=== PATIENT | female | born 2005 | race Caucasian/White ===

== ENCOUNTER 2025-11-06 12:50 | Outpatient (AMB) | payer OTHER, SELFPAY ==
--- NOTE | 2025-11-06 12:52 | A.OFFPC_ITS ---
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 Midlevel Provider Required: No Accompanied by: Self / Same As Patient Allergies No Known Allergies Allergy (Verified 11/06/25 12:58) Medication List - Last Reconciled 11/06/25 by Tayler Toney MD lamotrigine 100 mg PO DAILY lamotrigine 50 mg PO DAILY Tobacco use date assessed: 11/06/25 Dental Screening Dental Screen Date: 11/06/25 Did you have a dental visit in the last 12 months?: Yes Did you have a dental problem in the last 6 months where you did not have access to dental care?: No Was dental information given to patient?: Patient has dentist HPI HPI Comments History of Present Illness Details The patient is a 20 year old female with PMH of Bipolar Type 2 [facility] and for a general physical examination. She has a diagnosis of bipolar II disorder, for which she is prescribed lamotrigine 150 mg daily for mood stability. She is followed by a psychiatrist, Magda Ventura, for her condition. The patient denies any other past medical history or previous surgeries. Her family history is negative for heart disease and cancer, and both of her parents are alive. She denies any surgery. [facility] Social History Housing: Apartment Patient Tobacco Use Status: Never used Tobacco e-Cigarette/Vaping Use: Never Used Second Hand Smoke Exposure: No service: No Current occupational status: employed Current occupational exposures/hazards: No Cognitive needs: No Hearing needs: No Vision needs: Yes Questionnaire PHQ-9 Over the last 2 weeks, how often have you been bothered by any of the following problems? 1. Little interest or pleasure in doing things: not at all 2. Feeling down, depressed, or hopeless: several days 3. Trouble falling or staying asleep, or sleeping too much: several days 4. Feeling tired or having little energy: several days 5. Poor appetite or overeating: not at all 6. Feeling bad about yourself - or that you are a failure or have let yourself or your family down: not at all 7. Trouble concentrating on things, such as reading the newspaper or watching television: not at all 8. Moving or speaking so slowly that other people could have noticed. Or the opposite - being so fidgety or restless that you have been moving around a lot more than usual: not at all 9. Thoughts that you would be better off or of hurting yourself in some way: not at all Total score: 3 Depression Screening Interpretation: Negative Depression Screening Done: Yes Source: Developed by Drs. Jose A George, Birdie Garcia, Thiago Hilliard and colleagues, with an educational rolando from [employer]. Thrive Questionnaire Date Thrive assessed: 11/06/25 I am a: Patient What is your living situation today?: I have a steady place to live Within the past 12 months, did the food you bought not last and you didn't have the money to get more?: Never true Within the past 12 months, did you worry whether your food would run out before you got money to buy more?: Never true Do you have trouble paying for medicines?: No Do you have trouble getting transportation to medical appointments?: No Do you have trouble paying your heating and electricity bill?: No Do you have trouble taking care of your child, family member or friend?: No Do you have trouble with day-to-day activities such as bathing, preparing meals, shopping, managing finances, etc.?: No Are you currently unemployed and looking for a job?: No Are you interested in more education?: No Please select the resources that you would like help with: None Currently or been in a relationship where the following occur: No concerns reported THRIVE Score: 0 AUDIT C Alcohol Use Questionnaire (AUDIT-C) 1. How often do you have a drink containing alcohol?: Monthly or less 2. How many drinks containing alcohol do you have on a typical day when you are drinking?: 1 or 2 3. How often do you have six or more drinks on one occasion?: Never Total Score: 1 HARMEET-7 AMB Questionnaire HARMEET-7 Date HARMEET - 7 assessed: 11/06/25 Feeling nervous, anxious, or on edge: 1 = Several days Not being able to stop or control worryin = Not at all Worrying too much about different things: 1 = Several days Trouble relaxin = Several days Being so restless that it is hard to sit still: 0 = Not at all Becoming easily annoyed or irritable: 1 = Several days Feeling afraid as if something awful might happen: 0 = Not at all Total HARMEET-7 score (0-4 normal; 5-9 mild; 10-14 moderate; 15-21 severe): 4 Source: Developed by Drs. Jose A George, Birdie Garcia, Thiago Hilliard and colleagues, with an educational rolando from [employer]. Review of Systems Const Details: Positives besides what was mentioned in HPI are in BOLD Constitutional: No Weight Change, No Fever, No Chills, No Night Sweats, No Fatigue, No Malaise ENT/Mouth: No Hearing Changes, No Ear Pain, No Nasal Congestion, No Sinus Pain, No Hoarseness, No sore throat, No Rhinorrhea, No Swallowing Difficulty Eyes: No Eye Pain, No Swelling, No Redness, No Foreign Body, No Discharge, No Vision Changes Cardiovascular: No Chest Pain, No SOB, No PND, No Dyspnea on Exertion, No Orthopnea, No Claudication, No Edema, No Palpitations Respiratory: No Cough, No Sputum, No Wheezing, No Smoke Exposure, No Dyspnea Gastrointestinal: No Nausea, No Vomiting, No Diarrhea, No Constipation, No Pain, No Heartburn, No Anorexia, No Dysphagia, No Hematochezia, No Melena, No Flatulence, No Jaundice Genitourinary: No Dysmenorrhea, No DUB, No Dyspareunia, No Dysuria, No Urinary Frequency, No Hematuria, No Urinary Incontinence, No Urgency, No Flank Pain, No Urinary Flow Changes, No Hesitancy Musculoskeletal: No Arthralgias, No Myalgias, No Joint Swelling, No Joint Stiffness, No Back Pain, No Neck Pain, No Injury History Skin: No Skin Lesions, No Pruritis, No Hair Changes, No Breast/Skin Changes, No Nipple Discharge Neuro: No Weakness, No Numbness, No Paresthesias, No Loss of Consciousness, No Syncope, No Dizziness, No Headache, No Coordination Changes, No Recent Falls Psych: No Anxiety/Panic, No Depression, No Insomnia, No Personality Changes, No Delusions, No Rumination, No SI/HI/AH/VH, No Social Issues, No Memory Changes, No Violence/Abuse Hx., No Eating Concerns Heme/Lymph: No Bruising, No Bleeding, No Transfusions History, No Lymphadenopathy Endocrine: No Polyuria, No Polydipsia, No Temperature Intolerance Physical exam (Primary Care) Vital Signs: Last Vital Signs Pulse 91 11/06/25 12:55 BP 130/80 11/06/25 12:55 Pulse Ox 99 11/06/25 12:55 Oxygen Delivery Method Room Air 11/06/25 12:55 BMI result Body Mass Index 26.2 Tobacco/Smoking Status: Tobacco use Status Tobacco use date assessed 11/06/25 11/06/25 12:55 Patient Tobacco Use Status Never used Tobacco 11/06/25 12:55 e-Cigarette/Vaping Use Never Used 11/06/25 12:55 PHQ-9: PHQ-9 Score PHQ-9: Total score 3 11/06/25 13:05 Depression Screening Interpretation: Negative Thrive Assessment: Date of Thrive Assessment Date Thrive assessed 11/06/25 11/06/25 12:55 Currently or been in a relationship where the following occur: No concerns reported Const Other: Pertinent findings are in BOLD GENERAL APPEARANCE NAD, activity normal for age, well developed/ well nourished, no cyanosis, pallor, or diaphoresis. EYES lids/conjunctiva normal. EARS/NOSE/THROAT Mucous membranes moist, nares normal, lips/teeth normal uvula midline without oral pharyngeal erythema, exudate or swelling TMs normal bilaterally. No lymphangitis/lymphedema. Bilateral ear wax. HEAD/NECK normocephalic atraumatic, no facial trauma, neck is supple. RESPIRATORY respiratory effort normal, speaks in full sentences, no tripod position, no accessory muscle use. Lungs clear to auscultation without rhonchi, wheezes, rales CARDIAC Regular rate and rhythm, no edema. ABDOMINAL Soft, ND/NT. No evidence of fluid wave. No pulsatile masses on exam, rebound tenderness, Gupta sign or pain over Mcburney's point. MUSCLES/EXTREMITIES No abnormal range of motion, no swelling. SKIN Warm, pink and dry. No rashes, dermatoses, petechiae or lesions. NEUROLOGICAL Speech is clear and appropriate. Normal level of consciousness. Gait and coordination are normal. 5/5 strength in all extremities. PSYCH Normal mood and affect. Judgement/competence is appropriate Office Procedures Flu Questionnaire Does the patient have a severe egg allergy?: No Does the patient have severe life threatening allergies?: No Does the patient have a fever or illness today?: No Has the patient ever had Guillain-[place] Syndrome?: No Has the patient ever had any past reaction to a flu shot?: No Immunizations Fluarix [id number] (PF) 45 mcg (15 mcg x 3)/0.5 mL IM syringe Performing Provider: Tayler Toney MD Performing Location: [facility] [place] [facility] Administered by: Josefa Gomez RN on 11/06/25 13:39 Dose Route Admin Location Dispensed Lot Number Expiration Date NDC Mac Developer 0.5 mL IM Left Deltoid 0.5 mL [id number] 05/27/26 16974-556-44 Project 10K VIS Given Date VIS Provided VIS Publication Date 11/06/25 Single Vaccine 24 Eligibility Eligibility Date Funding Source Not VFC Eligible 11/06/25 Private Tenivac (PF) 5 Lf unit-2 Lf unit/0.5 mL intramuscular syringe Performing Provider: Tayler Toney MD Performing Location: [facility] [place] [facility] Administered by: Josefa Gomez RN on 11/06/25 13:43 Dose Route Admin Location Dispensed Lot Number Expiration Date NDC Mac Developer 0.5 mL IM Left Deltoid 0.5 mL [id number] 02/25/27 22881-859-79 SANOF [employer]-PASTEUR Total Dispensed Waste 0.5 mL 0 % VIS Given Date VIS Provided VIS Publication Date 11/06/25 Single Vaccine 21 Eligibility Eligibility Date Funding Source Not VFC Eligible 11/06/25 Private Coding Level of Care Code New Pt Prev Care 18-39yr([id number] Diagnoses Bipolar 2 disorder F31.81 Healthcare maintenance Z00.00 Bilateral impacted cerumen H61.23 Laterality: bilateral Time Spent (min) 20 Assessment & Plan Assessment & Plan (1) Bipolar 2 disorder: Code(s): F31.81 - Bipolar II disorder Category: Medical Plan: - The patient is stable on lamotrigine 150 mg daily for mood stabilization. - She will continue to follow up with her psychiatrist. (2) Healthcare maintenance: Code(s): Z00.00 - Encounter for general adult medical examination without abnormal findings Category: Medical Plan: CBC, CMP, Lipid panel, A1C, TSH w T4. Ordered. Shingles 2 doses when >50 yo. At 50. COVID: two doses. Completed. Tdap: LAst done in 2014. Due today. Ordered. Pneumococcal: >50 yo. 18-49 with CKD, lung disease, weakened immune system, Heart disease, DM, cochlear implant. At 50. Flu vaccine: Today. Colonoscopy: 45-75. At 45. AAA: 65 -75. NI[address] CT lun - 80. NI. HPV: geophysical observer. HIV: Ordered. HCV: Ordered. Dexa: At 65. Mammogram: Not due. (3) Excess ear wax: Code(s): H61.20 - Impacted cerumen, unspecified ear Category: Medical Qualifiers: Laterality: bilateral Qualified Code(s): H61.23 - Impacted cerumen, bilateral Plan: - Physical exam revealed cerumen in both ears. - A prescription for carbamide peroxide (Debrox) otic solution was sent to her pharmacy. - The patient was instructed to apply five drops in each ear daily for four days. Plan I introduced myself as the patient's new primary care physician and explained that our conversation was being recorded to assist with note-taking. I recommended she establish care with an ANIMAL DAMAGE CONTROL AGENT, and she agreed to a referral. During the exam, I noted cerumen in both of her ears and offered eardrops to help soften the wax, which she accepted. I will prescribe carbamide peroxide drops, instructing her to use five drops in each ear for four days. I informed her that lab orders would be placed for her to complete at the main hospital, preferably while fasting. Flu and tetanus shots administered today. Given that the visit was for a routine check-up and all findings were normal, I recommended a follow-up visit in one year. Orders: Orders Hemoglobin A1c Today Z00.00 - Encounter for general adult medical examination without abnormal findings Hepatitis C Antibody Reflex Today Z00.00 - Encounter for general adult medical examination without abnormal findings HIV Ab/Ag Today Z00.00 - Encounter for general adult medical examination without abnormal findings TSH reflex Free T4 Today Z00.00 - Encounter for general adult medical examination without abnormal findings Complete Blood Count no Diff Today Z00.00 - Encounter for general adult medical examination without abnormal findings Comprehensive Met. Panel Today Z00.00 - Encounter for general adult medical examination without abnormal findings Lipid Panel Today Z00.00 - Encounter for general adult medical examination without abnormal findings Influenza [id number] Immunization Today Z23 - Encounter for immunization Td Immunization Today Z23 - Encounter for immunization Referrals ANIMAL DAMAGE CONTROL AGENT Referral Z00.00 - Encounter for general adult medical examination without abnormal findings Medications: New carbamide peroxide 6.5% (Debrox) 5 drps otic (ear) right DAILY 15 mL 0RF 4 days
[2025-11-06 12:55] VITALS: BP 130/80; PULSE 91; O2SAT 99; BMI 26.2
--- NOTE | 2025-11-06 13:42 | AM.OFFVISNUR ---
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 Allergies No Known Allergies Allergy (Verified 11/06/25 12:58) Medication List - Last Reconciled 11/06/25 by Tayler Toney MD lamotrigine 100 mg PO DAILY lamotrigine 50 mg PO DAILY Office Procedures Flu Questionnaire Does the patient have a severe egg allergy?: No Does the patient have severe life threatening allergies?: No Does the patient have a fever or illness today?: No Has the patient ever had Guillain-[place] Syndrome?: No Has the patient ever had any past reaction to a flu shot?: No Immunizations Fluarix [id number] (PF) 45 mcg (15 mcg x 3)/0.5 mL IM syringe Performing Provider: Tayler Toney MD Performing Location[place] [facility] Administered by: Josefa Gomez RN on 11/06/25 13:39 Dose Route Admin Location Dispensed Lot Number Expiration Date ND Point Of Care Technician 0.5 mL IM Left Deltoid 0.5 mL [id number] 05/27/26 05177-638-20 [employer] VIS Given Date VIS Provided VIS Publication Date 11/06/25 Single Vaccine 24 Eligibility Eligibility Date Funding Source Not VFC Eligible 11/06/25 Private Tenivac (PF) 5 Lf unit-2 Lf unit/0.5 mL intramuscular syringe Performing Provider: Tayler Toney MD Performing [place] [facility] [place] [facility] Administered by: Josefa Gomez RN on 11/06/25 13:43 Dose Route Admin Location Dispensed Lot Number Expiration Date [facility] Point Of Care Technician 0.5 mL IM Left Deltoid 0.5 mL [id number] 02/25/27 32601-967-59 SANOFI-PASTEUR Total Dispensed Waste 0.5 mL 0 % VIS Given Date VIS Provided VIS Publication Date 11/06/25 Single Vaccine 21 Eligibility Eligibility Date Funding Source Not VFC Eligible 11/06/25 Private Assessment & Plan Assessment & Plan (1) Bipolar 2 disorder: Code(s): F31.81 - Bipolar II disorder Category: Medical (2) Healthcare maintenance: Code(s): Z00.00 - Encounter for general adult medical examination without abnormal findings Category: Medical Orders: Orders Hemoglobin A1c Today Z00.00 - Encounter for general adult medical examination without abnormal findings Hepatitis C Antibody Reflex Today Z00.00 - Encounter for general adult medical examination without abnormal findings HIV Ab/Ag Today Z00.00 - Encounter for general adult medical examination without abnormal findings TSH reflex Free T4 Today Z00.00 - Encounter for general adult medical examination without abnormal findings Complete Blood Count no Diff Today Z00.00 - Encounter for general adult medical examination without abnormal findings Comprehensive Met. Panel Today Z00.00 - Encounter for general adult medical examination without abnormal findings Lipid Panel Today Z00.00 - Encounter for general adult medical examination without abnormal findings Influenza [id number] Immunization Today Z23 - Encounter for immunization Td Immunization Today Z23 - Encounter for immunization Referrals FUEL CELL DESIGNER Referral Z00.00 - Encounter for general adult medical examination without abnormal findings Medications: New carbamide peroxide 6.5% (Debrox) 5 drps otic (ear) right DAILY 15 mL 0RF 4 days Coding Diagnoses Bipolar 2 disorder F31.81 Healthcare maintenance Z00.00
--- OUTSIDE RECORDS SUMMARY | 2025-11-06 19:43 | XMS_ITS | Clinical Summary ---
Author Organization [facility]erged With [facility] Address [address] [place] [address] Phone Care Team Providers Care Mail Deliverer Name Role Phone Pcp, Unknown Primary Care Provider Unavailabl e Allergies No known active allergies Medications No known medications Encounters Date Type Department Care Team Description 10/16/2025 9:11 PM EST - 10/16/2025 11:27 PM EST Emergency [facility] [address] [place] [address] Itz Gaspar, DO Discharge Disposition: Home or Self Care from Last 3 Months Social History Tobacco Use Types Packs/Day Years Used Date Smoking Tobacco: Never Assessed Education Answer Date Recorded Are you interested in more education? Not on yong e 10/17/2025 Are you concerned about learning? Not on file 10/17/2025 No 10/17/2025 No 10/17/2025 Food Answer Date Recorded Within the past 6 months we worried whether our food would run out before we got money to buy more. Never True 10/16/2025 Within the past 6 months the food we bought just didn't last and we didn't have enough money to get more. Never True Residential Stability Answer Date Recor ded What is your housing situation today? I have arlin sing 10/16/2025 How many times have you move d in the past 12 months? Zero (I did not move) 10/16/2025 Paying for Meds Answer Date Recorded Do you have trouble paying for medicines? No 10/16/2025 Paying Utility Bills Answer Date Record ed Do you have trouble paying your heating or elect ricity bill? No 10/16/2025 Transportation Answer Date Recorded Has the lack of transportati on kept you from medical appointments or from getting medications? No 10/16/2025 Digital Access Answer Date Recorded No 10/16/2025 Yes 10/16/2025 Do you have reliable internet access at home? Ye s 10/16/2025 Do you have a device (e.g., phone, tablet, computer) with a working camera? Yes 10/16/2025 Intimate Partner Violence Answer Date R ecorded Are you denied basic needs s uch as food, clothing, or medical care? No 10/16/2025 In the past 12 months have y ou been in a relationship with a person who hurts, threatens, or tries to control you? No 10/16/2025 Are you denied basic needs s uch as food, clothing, or medical care? No 10/16/2025 In the past 12 months have y ou been in a relationship with a person who hurts, threatens, or tries to control you? No 10/16/2025 Comments Unknown Sex and Gender Information Value Date Recorded Sex Assigned at Not on file Legal Sex Female 8:01 PM EST Gender Identity Not on file Sexual Orientation Not on file Last Filed Vital Signs Vital Sign Reading Time Taken Comments Blood Pressure 122/79 10/16/2025 11:25 PM EST Pulse 73 10/16/2025 11:25 PM EST Temperature 36.8 C (98.2 F) 10/16/2025 11:25 PM EST Respiratory Rate 16 10/16/2025 11:25 PM EST Oxygen Saturation 97% 10/16/2025 11:25 PM EST Inhaled Oxygen Concentration - - Weight - - Height - - Body Mass Index - - Plan of Treatment Health Maintenance Due Date Last Done Comments COMBINED DTaP,Tdap,Td (2 - T d or Tdap) 10/14/2015 09/16/2015 DEPRESSION SCREENING 2016 SMOKING Hx and SMOKELESS TOBACCO SCREENING 2017 HPV VACCINES (1 - 3-dose series) 2019 CHLAMYDIA SCREENING 2020 MENINGOCOCCAL VACCINES (B) ( 1 of 2 - Standard) 2020 ADOLESCENT UNIVERSAL LIPID SCREENING 2021 HEPATITIS C SCREENING 2022 HIV ONE-TIME SCREENING (18-6 5 YEARS) 2022 PAP SMEAR 2025 INFLUENZA VACCINE (#1) 2025 COVID-19 VACCINE (2024-2 6 season) 2025 Adult Td,Tdap Booster 09/16/2025 09/16/2015 MMR VACCINES Completed 06/05/2009, 06/22/2005 HEPATITIS A VACCINES Aged Out No long er eligible based on patient's age to complete this topic HIB VACCINES Aged Out No longer eligi ble based on patient's age to complete this topic MENINGOCOCCAL VACCINES (ACWY) Aged Out No longer eligible based on patient's age to complete this topic PNEUMOCOCCAL VACCINES (0-49 years) Aged Out No longer eligible b ased on patient's age to complete this topic Medical Devices Not on file Procedures Procedure Name Priority Date/Time Associated Diagnosis Comments FOREIGN BODY REMOVAL Routine 10/16/2025 11:13 PM EST from Last 3 Months Results * FOREIGN BODY REMOVAL (10/16/2025 11:13 PM EST) Narrative Itz Gaspar DO - 10/16/2025 11:13 PM EST Itz Gaspar DO 10/16/2025 11:14 PM Foreign Body Removal Date/Time: 10/16/2025 11:13 PM Performed by: Itz Gaspar DO Authorized by: Itz Gaspar DO Location: Body area: Mucosa General location: Head/neck Location details: Mouth Procedure Details: Localization method: Visualized Removal mechanism: Forceps and scalpel Depth: Subcutaneous Complexity: Simple Objects recovered (#): 1 Objects recovered: Ring Back Post-procedure assessment: Foreign body removed Patient tolerance: Patient tolerated the procedure well with no immediate complications Itz Gaspar DO PROCEDURE/MINOR SURGICAL ORDE RABLES Final Result from Last 3 Months Insurance [facility] Care Teams Mail Deliverer Relationship Specialty Start Date End Date Pcp, Unknown PCP - General 10/16/25 Additional Source Comments The information contained in this document represents components of the legal health record. It is not the complete legal health record.[facility] With [facility]
--- OUTSIDE RECORDS SUMMARY | 2025-11-06 19:44 | XMS_ITS | Encounter Summary ---
Author Organization [facility] Address [address] [place] [phone] Phone Care Team Providers Care Honey Extractor Name Role Phone Liliana Montelongo MD Primary Care Provider Encounter Details Date Type Department Care Team (Late st Contact Info) Description 07/06/2011 Conversion Encounter [facility] [place] [address] [place] [address] [place] [id number] Social History Tobacco Use Types Packs/Day Years Used Date Smoking Tobacco: Never Assessed Comments Unknown Sex and Gender Information Value Date Recorded Sex Assigned at Not on file Legal Sex Female 6:24 PM EDT Gender Identity Female 04/01/2021 9:08 AM EDT Sexual Orientation Bisexual 05/23/2020 8: 25 AM EDT documented as of this encounter Plan of Treatment Not on file documented as of this encounter Visit Diagnoses Not on filedocumented in this encounter Care Teams Honey Extractor Relationship Specialty Start Date End Date Liliana Montelongo MD [address] [facility] [place] [id number] PCP - General 04/05/18 documented as of this encounter
--- OUTSIDE RECORDS SUMMARY | 2025-11-06 19:44 | XMS_ITS | Clinical Summary ---
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 Looking for implantable device. Referred to APRN and info to be provided to patient today for BOGG for patient to call for routine care. Bipolar affective disorder, currently depressed, mild 06/11/2022 Overview (08/24/2023): Followed by Psych- Lamictal prescribed by them Current dose: 125mg daily. Assessment & Plan (08/24/2023 12:05 PM EDT): Doing well on Lamictal 125 mg as prescribed by psych. No SI or self-harm at this time. Assessment & Plan (06/13/2022 7:46 PM EDT): Followed by Psych- they prescribe Lamictal. Not established with any therapist and listing given today to seek out care. Also advised to f/u with Psych to see if they have options for her ongoing therapy. Eating disorder, unspecified 05/26/2021 Overview (06/13/2022): She restricts calories to 500-600 calories per day but then binges at times. No weight loss. Referred to [facility] 2020 2021 update: Per patient, Mom did want her to go to eating d/o clinic after last years referral and so never pursued. Per patient, she Feels like shes in a better place with eating, no longer counting calories. Assessment & Plan (08/24/2023 12:33 PM EDT): Has lost 22 lbs since last visit 05/2022. Patient states she is not trying to lose weight or counting calories but has been moving around and lifting things at work (works 35-40 hours per week at [employer]). Endorsing orthostatic symptoms (dizziness with changing position). Orthostatic vitals obtained: Vitals: 08/24/23 1127 08/24/23 1207 08/24/23 1213 BP: (!) 120/82 126/74 114/78 BP Location: Right arm Right arm Right arm Patient Position: Sitting Lying Standing Pulse: 68 78 93 Temp: 98.6 F (37 C) TempSrc: Tympanic SpO2: 99% Weight: 169 lb 6.4 oz (76.8 kg) Height: 5' 6.89 (169.9 cm) Orthostatic vitals negative. Plan - Offered re-referral to eating disorder clinic which patient declines at this time. - Encouraged 3 meals and 2 snacks daily, bringing extra snacks to eat at work, adequate hydration - Return in 1 month for weight check - Consider additional workup at that time if persistent or rapid rate or weight loss Assessment & Plan (06/11/2022 3:54 PM EDT): Mom did want her to go to eating d/o clinic after last years referral and so never pursued. Feels like in a better place with eating, no longer counting calories. Assessment & Plan (05/26/2021 9:05 AM EDT): She restricts calories to 500-600 calories per day but then binges at times. No weight loss. Referred to [facility] Disorder Clinic. Current moderate episode of major depressive disorder without prior episode 04/03/2021 Overview (06/07/2021): Consult done 04/03/2021. Concerns for depression but other concerning signs present such as not feeling like she is real and some suicidal ideation. Referred for virtual warm hand-off later that day and referred to [facility] for complete evaluation. Update from [facility] 05/2021: Likely Bipolar Disorder Spectrum Suggesting Lamictal for 4-6 month bridge therapy then f/u with psychiatry. Assessment & Plan (06/13/2022 7:49 PM EDT): Improved PHQ9. From last year. Followed by [facility]. Mild anxiety noted as well. Advised to obtain therapist. Assessment & Plan (05/26/2021 9:04 AM EDT): Consult done 04/03/2021. Concerns for depression but other concerning signs present such as not feeling like she is real and some suicidal ideation. Referred for virtual warm hand-off later that day and referred to [facility] program for complete evaluation. Today, PHQ9 remains elevated at 21 and she has passive suicidal thoughts. She has appt for today at 2:00 pm. On 05/14 our office contacted [facility] program and was told they would be reaching out to patient to schedule her for 06/04/2021. Patient knows nothing about this so I will ask the front end developer designer to call again. Assessment & Plan (04/06/2021 10:10 AM EDT): Concerns for depression but other concerning signs present such as not feeling like she is real and some suicidal ideation. Referred for virtual warm hand-off later that day and referred to [facility] program for complete evaluation. Adjustment disorder with mix ed disturbance of emotions and conduct 04/03/2021 Myopia of both eyes with astigmatism 12/27/2019 Overview (05/26/2021): Seen by Desktop Architect 01/2021 per patient (no consult note received)for b/l myopia and regular astigmatism, Assessment & Plan (05/26/2021 9:04 AM EDT): F/u with Desktop Architect. Assessment & Plan (05/23/2020 8:45 AM EDT): F/U with mac developer in June. Second hand smoke exposure 12/14/2016 Overview (05/19/2019): environmental exposure to tobacco (V87) Onset: 12/14/2016 Added by: Camila Mcintyre Resolved Problems Problem Noted Date Diagnosed Date Resolved Date Body mass index, pediatric, greater than or equal to 95th percentile for age 0302/14/2018 020 Overview (05/19/2019): Body Mass Index, pediatric, greater than or equal to 95th percentile for age (V85.54) Onset: 02/14/2018 Added by: Liliana Montelongo Assessment & Plan (05/21/2019 7:52 PM EDT): Discussed nutrition, portions and continuing to be active. Obesity 02/14/2018 05/23/2020 Overview (05/19/2019): Obesity, NOS (278.00) Onset: 02/14/2018 Added by: Liliana Montelongo Immunizations Immunization Administration Dates Next Due DTaP 5 06/05/2009, 6,2004,10/06,2004 HPV Vaccine 9 Valent 02/14/2018,12/14/2016 Hep A, ped/adol 08/25/2012,07/07/2011 Hep B, ped/adol 03/02/2005,2004,2004 Hib (PRP-T) 09/22/2005, 5,2004,07/31 IPV 06/05/2009, 6,2004,07/31 Influenza, injectable, quadr ivalent, preservative free 08/24/2023,12/14/2022,09/21/2020,02/14,12/14/2016,09/16/2015 Influenza, injectable, triva lent, preservative free 08/28/2009 Influenza, intranasal, quadrivalent 09/10/2014,1 Influenza, intranasal, trivalent 08/25/2012 MMR 06/05/2009,06/22/2005 Meningococcal B Trumenba 12/14/2022,06/11/2022 Meningococcal Conj (Menactra) MCV4P 03/17/2021,1 Tdap 09/16/2015 Varicella 06/05/2009,01/14/2006 Social History Tobacco Use Types Packs/Day Years Used Date Smoking Tobacco: Passive Smo ke Exposure - Never Smoker Smokeless Tobacco: Never Alcohol Use Standard Drinks/Week Comments Never 0 (1 standard drink = 0.6 oz pur e alcohol) Hunger/Food Answer Date Recorded In the last 12 months, did y ou or your family ever eat less than you felt you should because there wasn't enough money for food? No 08/17/2023 Stable Housing Answer Date Recorded Are you worried that in the next 2 months you may not have stable housing? No 08/17/2023 Transportation Concerns Answer Date Rec orded In the last 12 months, have you or your family ever had to go without healthcare because you didn't have a way to get there? No 08/17/2023 Hazards in Home Answer Date Recorded Think about the place you li ve. Do you have problems with any of the following? Pests (mice or roaches), mold, no/not working smoke detectors, water leaks, no window guards. No 2022 Financing Utilities Answer Date Recorde d In the last 12 months, has t he electric, gas, oil, or water company threatened to shut off your services in your home? No 08/17/2023 Safety at Home Answer Date Recorded Are you or your family worried about feeling saf e in your home? No 08/17/2023 Outside Support Answer Date Recorded Do you feel that you need mo re support from other people or programs to help you care for yourself or your family? No 08/17/2023 Understanding Health Concerns Answer Da te Recorded Do you need help understandi ng your or your child's healthcare needs (diagnosis, medications, plan, etc.)? No 08/17/2023 Financing Health Concerns Answer Date R ecorded In the last 12 months, was t here a time when your child needed to see a doctor or get medications or supplies but could not because of cost? No 08/17/2023 Missing School or Work Answer Date Anthony rded Did you or your child miss s chool or work because of a health problem that could have been avoided? No 08/17/2023 Comments No Sex and Gender Information Value Date Recorded Sex Assigned at Not on file Legal Sex Female 6:24 PM EDT Gender Identity Female 04/01/2021 9:08 AM EDT Sexual Orientation Bisexual 05/23/2020 8: 25 AM EDT Last Filed Vital Signs Vital Sign Reading Time Taken Comments Blood Pressure 110/68 09/23/2023 1:18 PM EDT Pulse 90 09/23/2023 1:18 PM EDT Temperature 37 C (98.6 F) 08/24/2023 11:27 AM EDT Respiratory Rate 18 09/23/2023 1:18 PM EDT Oxygen Saturation 98% 09/23/2023 1:18 PM EDT Inhaled Oxygen Concentration - - Weight 76.9 kg (169 lb 9.6 oz) 09/23/2023 1:18 P M EDT Height 171.5 cm (5' 7.5 ) 09/23/2023 1:18 PM EDT Body Mass Index 26.17 09/23/2023 1:18 PM EDT Plan of Treatment Health Maintenance Due Date Last Done Comments HIV Screening 2019 Hepatitis C Screening 2022 Chlamydia and Gonorrhea Screening 11/28/2024 06/11/2022, 05/21/2019 Influenza Vaccines (#1) 2025 08/24/20 23, 12/14/2022, 09/21/2020, Additional history exists COVID-19 Vaccine (3 - season) 2025 05/05/2021, 04/14/2021 DTaP,Tdap,and Td Vaccines (7 - Td or Tdap) 09/16/2025 09/16/2015, 06/05/2009, 01/14/2006, Additional history exists Hepatitis B Vaccines Completed 03/02/2005, 2004, 2004 HIB Vaccines Completed 09/22/2005, 11/28, 2004, Additional history exists IPV Vaccines Completed 06/05/2009, 12/29, 2004, Additional history exists MMR Vaccines Completed 06/05/2009, 06/22/2005 Varicella Vaccines Completed 06/05/2009, 01/14/2006 Hepatitis A Vaccines Completed 08/25/2012, 07/07/20 11 HPV Vaccines Completed 02/14/2018, 12/14/2016 Meningococcal Vaccine Completed 03/17/2021, 015 Men B Vaccine Completed 12/14/2022, 06/11/2022 Pneumococcal Vaccine Aged Out No long er eligible based on patient's age to complete this topic Procedures * Due to [facility] law, this organization might not be sharing sensitive test results. Procedure Name Priority Date/Time Associated Diagnosis Comments CHLAMYDIA AND GONORRHEA, AMPLIFIED Routine 06/11/2022 4:37 PM EDT Screening for STDs (sexually transmitted diseases) from Last 3 Months or Most Recently Relevant to Health Maintenance Results * Due to [place] [employer] law, this organization might not be sharing sensitive test results. * Chlamydia and Gonorrhoea, Amplified (06/11/2022 4:37 PM EDT) Chlamydia Trachomatis, DNA Probe NEGATIVE (NEG) [facility] Comment: No Chlamydia Trachomatis RNA detected in this patient's sample (REFERENCE RANGE/NORMAL VALUE: NOT DETECTED) Note: This test uses electrical subcontractor- mediated amplification method to detect rRNA from C. Trachomatis URINE GC AMP PROBE NEGATIVE (NEG) [facility] Comment: No Neisseria Gonorrhoeae RNA detected in this patient's sample (REFERENCE RANGE/NORMAL VALUE: NOT DETECTED) NOTE: This test uses electrical subcontractor-mediated amplification method to detect rRNA from N.Gonorrhoeae. A negative result does not preclude infection. In the case of a negative urine result, testing of an endocervical(female) or urethral (male) specimen is recommended if there is high clinical suspicion of infection. Due to very high sensitivity of Nucleic Acid Amplification Test, false positive results may occur. Therefore, specimen handling is extremely important. In patients in whom the disease is unlikely, additional sample for testing should be considered after an initial positive result. The performance characteristics of this test have not been evaluated in children. The Aptima Combo2 assay is not intended for the evaluation of suspected sexual abuse or for other medico-legal indications. The ordering provider should assess if the patient had consensual sex without risk of sexual abuse. Consult the [facility] if needed. Contact phone number . Therapeutic failure or success cannot be determined with the Aptima Combo2 assay since nucleic acid may persist following appropriate antimicrobial therapy. The Centers for Disease Control and Prevention (CDC) recommends confirmatory retesting using culture or a different nucleic acid amplification test when positive results occur, if indicated. Testing performed or reported by [facility], a Service of [facility], [address] [place] [address] Florin Garcia MD, Lathe Sander [facility]# [id number] Urine (Urine) 06/11/2022 4:3 7 PM EDT 06/11/2022 11:17 PM EDT us Katja Elizondo MD LAB MICROBIOLOGY - GENERAL ORDER CHEMA Final Result [facility] from Last 3 Months or Most Recently Relevant to Health Maintenance [place] [address] [place] [id number] [place] [address] Care Teams Automatic Fancy Machine Operator Relationship Specialty Start Date End Date Liliana Montelongo MD [address] [place] [address] HOD[place] Vora [id number] PCP - General 04/05/18
== END 2025-11-06 13:42 | disposition home or self-care (01) ==
LOC: HO.HMCH 12:51
PROVIDERS: PCP Internal Medicine; Visit Provider Internal Medicine
DX: Z00.00 Encounter for general adult medical examination without abnormal findings (principal); F31.81 Bipolar II disorder; H61.23 Impacted cerumen, bilateral; Z23 Encounter for immunization

== ENCOUNTER → 2025-11-06 12:50 | Outpatient (BNVA) | payer OTHER, SELFPAY | PROVIDERS: Visit Provider Internal Medicine | DX: Z23 Encounter for immunization (principal); Z13.31 Encounter for screening for depression; Z13.39 Encounter for screening examination for other mental health and behavioral disorders | CPT/HCPCS: 90471; 90472; 90656; 90714; 96127 ==